=== PATIENT | female | born 1970 | race Caucasian/White ===

== ENCOUNTER 2017-01-16 14:34 | Emergency (ER) | payer OTHER ==
[~2017-01-16] VITALS: Ht 154.9 cm; Wt 49.9 kg
[2017-01-16 18:02] VITALS: BP 121/85
== END 2017-01-16 18:03 | disposition home or self-care (01) ==
LOC: ED 14:34
DX: I10 Essential (primary) hypertension (principal); F41.9 Anxiety disorder, unspecified; F32.9 Major depressive disorder, single episode, unspecified; Z79.1 Long term (current) use of non-steroidal anti-inflammatories (NSAID); Z79.899 Other long term (current) drug therapy; Z88.6 Allergy status to analgesic agent; Z88.8 Allergy status to other drugs, medicaments and biological substances; Z90.49 Acquired absence of other specified parts of digestive tract